=== PATIENT | male | born 1940 | race Caucasian/White ===

== ENCOUNTER → 2016-02-28 | Outpatient (CLI) | payer MEDICARE, BC | LOC: SP 07:36 | PROVIDERS: ATTEND Internal Medicine | DX: R09.89 Other specified symptoms and signs involving the circulatory and respiratory systems (principal) | CPT/HCPCS: 93880 ==

== ENCOUNTER 2016-10-04 11:17 | Emergency (ER) | payer MEDICARE, BC ==
[2016-10-04] MEDS ORDERED: DIAZEPAM INJ 10 MG/2 ML DISP.SYRIN IM ONE (11:35)
[2016-10-04] MEDS ORDERED: KETOROLAC TROMETHAMINE 60 MG/2 ML SDV IM ONE (11:35)
--- NOTE | 2016-10-04 11:42 | ER Document Report ---
ED General - General Chief Complaint: Headache Stated Complaint: NECK PAIN,HEADACHE Time Seen by Provider: 10/04/16 11:33 Mode of Arrival: Ambulatory Information source: Patient Notes: 76-year-old male presents with complaints of 4 day duration of neck tightness inability to move his neck. Patient notes that is causing him pain. denies any fevers or chills, denies any nausea or vomiting. Pt dneies any meningeal signs TRAVEL OUTSIDE OF THE [place] IN LAST 30 DAYS: No - HPI Onset: Last week Onset/Duration: Persistent Quality of pain: Achy Severity: Mild Pain Level: 1 Associated symptoms: None Exacerbated by: Movement Relieved by: Denies Similar symptoms previously: No Recently seen / treated by doctor: No Past Medical History - Social History Smoking Status: Former Smoker Cigarette use (# per day): No Chew tobacco use (# tins/day): No Smoking Education Provided: No Frequency of alcohol use: Occasional Drug Abuse: None Family History: Reviewed & Not Pertinent Patient has suicidal ideation: No Patient has homicidal ideation: No - Past Medical History Cardiac Medical History: Reports: Hx Hypertension Endocrine Medical History: Reports: Hx Diabetes Mellitus Type 2 Renal/ Medical History: Denies: Hx Peritoneal Dialysis Past Surgical History: Reports: Hx Orthopedic Surgery - Right eye, finger re- attachment - Immunizations Hx Diphtheria, Pertussis, Tetanus Vaccination: Yes Review of Systems - Review of Systems Notes: REVIEW OF SYSTEMS: CONSTITUTIONAL : Denies fever, chills, or sweats. Denies recent illness. EENT: Admits neck stiffness CARDIOVASCULAR: Denies chest pain. Denies palpitations or racing or irregular heart beat. Denies ankle edema. RESPIRATORY: Denies cough, cold, or chest congestion. Denies shortness of breath, difficulty breathing, or wheezing. GASTROINTESTINAL: Denies abdominal pain or distention. Denies nausea, vomiting , or diarrhea. Denies blood in vomitus, stools, or per rectum. Denies black, tarry stools. Denies constipation. GENITOURINARY: Denies difficulty urinating, painful urination, burning, frequency, blood in urine, or discharge. MUSCULOSKELETAL: Denies back or neck pain or stiffness. Denies joint pain or swelling. SKIN: Denies rash, lesions or sores. HEMATOLOGIC : Denies easy bruising or bleeding. LYMPHATIC: Denies swollen, enlarged glands. NEUROLOGICAL: Denies confusion or altered mental status. Denies passing out or loss of consciousness. Denies dizziness or lightheadedness. Denies headache. Denies weakness or paralysis or loss of use of either side. Denies problems with gait or speech. Denies sensory loss, numbness, or tingling. Denies seizures. PSYCHIATRIC: Denies anxiety or stress. Denies depression, suicidal ideation, or homicidal ideation. ALL OTHER SYSTEMS REVIEWED AND NEGATIVE. Dictation was performed using [employer] voice recognition software PHYSICAL EXAMINATION: GENERAL: Well-appearing, well-nourished and in no acute distress. HEAD: Atraumatic, normocephalic. EYES: Pupils equal round and reactive to light, extraocular movements intact, sclera anicteric, conjunctiva are normal. ENT: Limited range of motion of the neck no tenderness on palpation NECK: Normal range of motion, supple without lymphadenopathy LUNGS: Breath sounds clear to auscultation bilaterally and equal. No wheezes rales or rhonchi. HEART: Regular rate and rhythm without murmurs ABDOMEN: Soft, nontender, nondistended abdomen. No guarding, no rebound. No masses appreciated. Musculoskeletal: Normal range of motion, no pitting or edema. No cyanosis. NEUROLOGICAL: Cranial nerves grossly intact. Normal speech, normal gait. Normal sensory, motor exams PSYCH: Normal mood, normal affect. SKIN: Warm, Dry, normal turgor, no rashes or lesions noted. Physical Exam - Vital signs Vitals: Temp Pulse Resp BP Pulse Ox 97.6 F 70 18 156/75 H 98 10/04/16 11:20 10/04/16 11:20 10/04/16 11:20 10/04/16 11:20 10/04/16 11:20 Course - Re-evaluation Re-evalutation: 10/04/16 11:42 Patient's presentation is consistent with torticollis, he has no meningeal signs , he has no life-threatening issues noted. Initial concern was for subarachnoid or other intracranial abnormality however the patient's headache is completely related to muscle spasm 10/04/16 12:21 Patient notes mild improvement of the muscle spasm and headache 10/04/16 12:33 Patient otherwise looks well and will be discharged home at this time After performing a Medical Screening Examination, I estimate there is LOW risk for CENTRAL CORD SYNDROME, EPIDURAL MASS LESION, SEVERE SPINAL STENOSIS, ARTERIAL DISSECTION, MENINGITIS, or ACUTE CORONARY SYNDROME, thus I consider the discharge disposition reasonable. I have reevaluated this patient multiple times and no significant life threatening changes are noted. The patient and I have discussed the diagnosis and risks, and we agree with discharging home to follow-up on an outpatient basis with the understanding that symptoms and presentations can change. We also discussed returning to the Emergency Department immediately if new or worsening symptoms occur. We have discussed the symptoms which are most concerning (e.g., saddle anesthesia, urinary or bowel incontinence or retention, changing or worsening pain) that necessitate immediate return. - Vital Signs Vital signs: Temp Pulse Resp BP Pulse Ox 97.6 F 70 18 156/75 H 98 10/04/16 11:20 10/04/16 11:20 10/04/16 11:20 10/04/16 11:20 10/04/16 11:20 Discharge - Discharge Clinical Impression: Torticollis Headache Qualifiers: Headache type: unspecified Headache chronicity pattern: acute headache Intractability: not intractable Qualified Code(s): R51 - Headache Condition: Stable Disposition: HOME, SELF-CARE Instructions: Torticollis ([facility]) Additional Instructions: Follow up with your physician tomorrow for further care or return to the ED IMMEDIATELY if symptoms worsen or new concerns occur. If you cannot afford to follow up with your primary care physician a list of low cost clinics have been provided at the end of your discharge papers as well. Prescriptions: Diazepam [Valium 5 mg Tablet] 5 mg PO QIDP PRN #20 tablet PRN Reason: Ibuprofen 800 mg PO Q8 #30 tablet
[2016-10-04 13:03] VITALS: BP 148/76
== END 2016-10-04 13:02 | disposition home or self-care (01) ==
LOC: ER 11:17
DX: M43.6 Torticollis (principal); R51 Headache; M54.2 Cervicalgia; Z87.891 Personal history of nicotine dependence
CPT/HCPCS: 99283; 96372; J3360; J1885

== ENCOUNTER 2017-09-06 13:03 | Emergency (ER) | payer MEDICARE, BC ==
[2017-09-06 13:10] VITALS: BP 134/64
[2017-09-06] MEDS ORDERED: BUPIVACAINE HCL 0.75% INJ/PF (7.5 MG/1 ML) 10 ML SDV INJ ONE (13:47)
[2017-09-06] MEDS ORDERED: METHYLPREDNISOLONE ACETATE INJ 80 MG/1 ML VIAL INJ ONE (13:47)
--- NOTE | 2017-09-06 13:57 | ER Document Report ---
ED Extremity Problem, Lower - General Chief Complaint: Knee Pain Stated Complaint: KNEE PAIN Time Seen by Provider: 09/06/17 13:47 Information source: Patient Notes: Chief complaint: Right knee pain History of complain:( obtained from----patient) 77 years old male with a history of remote right knee injury, subsequent arthritis, presents today with nearly 5 day history of gradual swelling to the point that he could not walk this morning. No recent injuries. Denies any fever chills or other constitutional symptoms. Denies any history of gout. Onset: As above Duration: Last 5 days Severity: Moderate to severe Quality: Sharp Context: Swelling of the knee Exacerbating factor and relieving factors: Flexion extension increases the pain resting relieved REVIEW OF SYSTEMS: CONSTITUTIONAL : Denies fever, chills, or sweats. Denies recent illness. EENT: Denies eye, ear, throat, or mouth pain or symptoms. Denies nasal or sinus congestion or discharge. Denies throat, tongue, or mouth swelling or difficulty swallowing. CARDIOVASCULAR: Denies chest pain. Denies palpitations or racing or irregular heart beat. Denies ankle edema. RESPIRATORY: Denies cough, cold, or chest congestion. Denies shortness of breath, difficulty breathing, or wheezing. GASTROINTESTINAL: Denies distention. Denies nausea, vomiting, or diarrhea. Denies blood in vomitus, stools, or per rectum. Denies black, tarry stools. Denies constipation. GENITOURINARY: Denies difficulty urinating, painful urination, burning, frequency, blood in urine, or discharge. FEMALE GENITOURINARY: Denies vaginal bleeding, heavy or abnormal periods, irregular periods. Denies vaginal discharge or odor. MUSCULOSKELETAL: SKIN: Denies rash, lesions or sores. HEMATOLOGIC : Denies easy bruising or bleeding. LYMPHATIC: Denies swollen, enlarged glands. NEUROLOGICAL: Denies confusion or altered mental status. Denies passing out or loss of consciousness. Denies dizziness or lightheadedness. Denies headache. Denies weakness or paralysis or loss of use of either side. Denies problems with gait or speech. Denies sensory loss, numbness, or tingling. Denies seizures. PSYCHIATRIC: Denies anxiety or stress. Denies depression, suicidal ideation, or homicidal ideation. ALL OTHER SYSTEMS REVIEWED AND NEGATIVE. PHYSICAL EXAMINATION: GENERAL: Well-appearing, well-nourished and in mild acute distress. HEAD: Atraumatic, normocephalic. EYES: Pupils equal round and reactive to light, extraocular movements intact, conjunctiva are normal. ENT: Nares patent, oropharynx clear without exudates. Moist mucous membranes. NECK: Normal range of motion, supple without lymphadenopathy LUNGS: Breath sounds clear to auscultation bilaterally and equal. No wheezes rales or rhonchi. HEART: Regular rate and rhythm without murmurs Musculoskeletal: Right knee-shows diffuse swelling, fluctuant fluid over the knee joint, it is not erythematous is not warm or tender to touch. More fluid along the suprapatellar bursa. SKIN: Warm, Dry, normal turgor, no rashes or lesions noted. Dictation was performed using [employer] voice recognition software TRAVEL OUTSIDE OF THE [place] IN LAST 30 DAYS: No - HPI Notes: Dictated - Related Data Allergies/Adverse Reactions: No Known Allergies Allergy (Verified 09/06/17 13:40) Past Medical History - Social History Smoking Status: Never Smoker Cigarette use (# per day): No Chew tobacco use (# tins/day): No Smoking Education Provided: No Frequency of alcohol use: Rare Drug Abuse: None Lives with: Family Family History: Reviewed & Not Pertinent - Past Medical History Cardiac Medical History: Reports: Hx Hypertension Endocrine Medical History: Reports: Hx Diabetes Mellitus Type 2 Renal/ Medical History: Denies: Hx Peritoneal Dialysis Past Surgical History: Reports: Hx Orthopedic Surgery - Right eye, finger re- attachment - Immunizations Hx Diphtheria, Pertussis, Tetanus Vaccination: Yes Review of Systems - Review of Systems Notes: Dictated Physical Exam - Vital signs Vitals: Temp Pulse Resp BP Pulse Ox 97.9 F 67 18 134/64 H 99 09/06/17 13:09 09/06/17 13:09 09/06/17 13:09 09/06/17 13:09 09/06/17 13:09 - Notes Notes: Dictated Course - Vital Signs Vital signs: Temp Pulse Resp BP Pulse Ox 97.9 F 67 18 134/64 H 99 09/06/17 13:09 09/06/17 13:09 09/06/17 13:09 09/06/17 13:09 09/06/17 13:09 Procedures - Joint Aspiration Right Knee Time completed: 14:20 Consent obtained: Yes Joint aspiration pre-procedure: Sterile PPE donned, Sterile drapes applied Anesthetic type: Other - Depo-Medrol 80 mg mL's of anesthetic: 10 Needle size: 18 Amount/type of drainage: 40ml Number of attempts: 1 Complications: No Discharge - Discharge Clinical Impression: Knee effusion, right Condition: Fair Disposition: HOME, SELF-CARE Instructions: Sprained Knee ([facility]), Knee Effusion ([facility]), Osteoarthritis ([facility]) Prescriptions: Baclofen [Baclofen 10 mg Tablet] 10 mg PO TID #30 tab Hydrocodone/Acetaminophen [Hydrocodon-Acetaminophen 5-325] 1 each PO TID PRN # 20 tablet PRN Reason: Referrals: DIAN SWARTZ MD [Primary Care Provider] - Follow up as needed
== END 2017-09-06 14:36 | disposition home or self-care (01) ==
LOC: ER 13:03
DX: M25.461 Effusion, right knee (principal); M17.11 Unilateral primary osteoarthritis, right knee; M25.561 Pain in right knee; I10 Essential (primary) hypertension; E11.9 Type 2 diabetes mellitus without complications
CPT/HCPCS: 99283

== ENCOUNTER → 2017-12-11 | Outpatient (CLI) | payer MEDICARE, BC ==
--- NOTE | 2017-12-11 12:41 | RADIOLOGY REPORT (SQ) ---
EXAM DESCRIPTION: VENOUS UNILATERAL LOWER COMPLETED DATE/TIME: 12/11/2017 12:28 pm REASON FOR STUDY: EDEMA RT LEG R60.1 GENERALIZED EDEMA M79.671 PAIN IN RIGHT FOOT COMPARISON: None. TECHNIQUE: Dynamic and static walker scale and color images acquired of the right leg venous system. S elected spectral images acquired with additional compression and augmentation maneuvers. The contrala teral common femoral vein and saphenofemoral junction were also imaged. Images stored on PACS. LIMITATIONS: None. FINDINGS: COMMON FEMORAL: Normal phasicity, compression and augmentation. No visualized echogenic ma terial on walker scale. No defects on color images. FEMORAL: Normal compression and augmentation. No visualized echogenic material on walker scale. No defe cts on color images. POPLITEAL: Normal compression, augmentation. No visualized echogenic material on walker scale. No defec ts on color images. CALF VESSELS: Normal compression, augmentation. No visualized echogenic material on walker scale. No de fects on color images. GSV and SSV: Normal compression, augmentation. No visualized echogenic material on walker scale. No def ects on color images. ANY DEEP VENOUS INSUFFICIENCY: No. ANY EVIDENCE OF POPLITEAL CYST: No. OTHER: No other significant finding. CONTRALATERAL COMMON FEMORAL VEIN AND SAPHENOFEMORAL JUNCTION: Normal phasicity, compression and augmentation. No visualized echogenic material on walekr scale. No de fects on color images. IMPRESSION: NO EVIDENCE DVT OR SVT IN THE RIGHT LEG. TECHNICAL DOCUMENTATION: JOB ID: [id number] [employer]- All Rights Reserved Reading location - IP/workstation name: [email or web address]
== END ==
LOC: SP 11:29
PROVIDERS: ATTEND Podiatrist
DX: M79.671 Pain in right foot (principal); R60.1 Generalized edema
CPT/HCPCS: 93971

== ENCOUNTER 2018-07-30 09:57 | Emergency (ER) | payer MEDICARE, BC ==
[2018-07-30] MEDS ORDERED: OXYCODONE-ACETAMINOPHEN 5-325 MG TABLET PO ONE (10:36)
--- NOTE | 2018-07-30 10:37 | ER Document Report ---
ED Medical Screen (RME) - General Chief Complaint: Knee Pain Stated Complaint: RIGHT KNEE PAIN Time Seen by Provider: 07/30/18 10:32 Primary Care Provider: PREETI PARRY MD [Primary Care Provider] - Follow up as needed Mode of Arrival: Wheelchair Information source: Patient Notes: Patient is a 78-year-old male presented to the emergency department with long-standing history of joint effusions to his right knee. Patient reports he has had this drained in the emergency department as well as at the orthopedic providers office. He states the last time he had a drain was 3 weeks ago. Patient reports increased pain and states today he was unable to walk on this. He states he does need a knee replacement however due to his diabetes he is not a candidate for that at this time. Exam: Limited range of motion to left knee due to pain. Obvious joint effusion noted. I have greeted and performed a rapid initial assessment of this patient. A comprehensive ED assessment and evaluation of the patient, analysis of test results and completion of the medical decision making process will be conducted by additional ED providers. Dictation of this chart was performed using voice recognition software; therefore, there may be some unintended grammatical errors. TRAVEL OUTSIDE OF THE [place] IN LAST 30 DAYS: No - Related Data Allergies/Adverse Reactions: No Known Allergies Allergy (Verified 07/30/18 09:59) Past Medical History - Past Medical History Cardiac Medical History: Reports: Hx Hypertension Endocrine Medical History: Reports: Hx Diabetes Mellitus Type 2 Renal/ Medical History: Denies: Hx Peritoneal Dialysis Past Surgical History: Reports: Hx Orthopedic Surgery - Right eye, finger re- attachment - Immunizations Hx Diphtheria, Pertussis, Tetanus Vaccination: Yes Physical Exam - Vital signs Vitals: Temp Pulse Resp BP Pulse Ox 97.4 F 75 18 132/58 H 99 07/30/18 10:01 07/30/18 10:01 07/30/18 10:01 07/30/18 10:01 07/30/18 10:01 Course - Vital Signs Vital signs: Temp Pulse Resp BP Pulse Ox 97.4 F 75 18 132/58 H 99 07/30/18 10:01 07/30/18 10:01 07/30/18 10:01 07/30/18 10:01 07/30/18 10:01 Doctor's Discharge - Discharge Referrals: PREETI PARRY MD [Primary Care Provider] - Follow up as needed
--- NOTE | 2018-07-30 11:28 | RADIOLOGY REPORT (SQ) ---
EXAM DESCRIPTION: KNEE RIGHT 4 VIEWS COMPLETED DATE/TIME: 07/30/2018 11:09 am REASON FOR STUDY: eval for joint effusion COMPARISON: None. NUMBER OF VIEWS: Four views. TECHNIQUE: AP, lateral, and both oblique radiographic images acquired of the right knee. LIMITATIONS: None. FINDINGS: MINERALIZATION: Normal. BONES: No acute fracture or dislocation. No worrisome bone lesions. Joint space narrowing and osteoph yte formation patellofemoral and medial compartments. Bone on bone contact medial compartment. JOINT: Joint effusion. Loose bodies. OTHER: No other significant finding. IMPRESSION: Advanced osteoarthritis. Joint effusion. TECHNICAL DOCUMENTATION: JOB ID: [id number] [employer]- All Rights Reserved Reading location - IP/workstation name: [email or web address]
[2018-07-30] MEDS ORDERED: HYDROMORPHONE HCL INJ/PF 2 MG/ML AMPULE SUBCUT ONE (14:32)
[2018-07-30] MEDS ORDERED: ONDANSETRON 4 MG TAB.RAPDIS PO ONE (14:33)
--- NOTE | 2018-07-30 14:39 | ER Document Report ---
ED General - General Chief Complaint: Knee Pain Stated Complaint: RIGHT KNEE PAIN Time Seen by Provider: 07/30/18 10:32 Primary Care Provider: PREETI PARRY MD [ASSOCIATE] - Follow up as needed Mode of Arrival: Wheelchair Information source: Patient TRAVEL OUTSIDE OF THE [place] IN LAST 30 DAYS: No - HPI Patient complains to provider of: Right knee effusion Onset: Other - Chronic/recurrent Onset/Duration: Worse Quality of pain: Sharp, Stabbing Severity: Severe Pain Level: 5 Associated symptoms: None Exacerbated by: Movement, Walking, Other - Weightbearing Relieved by: Denies Similar symptoms previously: No Recently seen / treated by doctor: No Notes: Patient is a 78-year-old male coming in today for a right knee effusion. Apparently he has been having knee effusions in this knee for quite some time. He has seen the ER and Dr. Hurd's office to have it tapped in the past. Apparently he has a bad arthritis in that knee and does need a knee replacement at some point in time but is been told that because of his poorly controlled diabetes and nobody is willing to do the knee replacement at this time. He is here today specifically requesting a joint tap to relieve the pressure. - Related Data Allergies/Adverse Reactions: No Known Allergies Allergy (Verified 07/30/18 09:59) Past Medical History - General Information source: Patient - Social History Smoking Status: Never Smoker Frequency of alcohol use: Occasional Drug Abuse: None Family History: Reviewed & Not Pertinent Patient has suicidal ideation: No Patient has homicidal ideation: No - Past Medical History Cardiac Medical History: Reports: Hx Heart Attack, Hx Hypertension Endocrine Medical History: Reports: Hx Diabetes Mellitus Type 2 Renal/ Medical History: Denies: Hx Peritoneal Dialysis Past Surgical History: Reports: Hx Cardiac Surgery - bypass X 2, Hx Orthopedic Surgery - Right eye, finger re-attachment - Immunizations Hx Diphtheria, Pertussis, Tetanus Vaccination: Yes Review of Systems - Review of Systems Notes: Constitutional: No fevers. No chills. EENT: No eye redness. No eye pain. No ear pain. No sore throat. Cardiovascular: No chest pain. No palpitations. Respiratory: No cough. No shortness of breath. No respiratory distress. Gastrointestinal: No abdominal pain. No nausea, vomiting, or diarrhea. Genitourinary: Atraumatic. No lesions. No pain. No discharge. Musculoskeletal: Positive joint effusion right knee. Skin: No rash or lesions. Lymphatic: No swollen lymph nodes. Neurologic: No headache. No syncope. Psychiatric: No suicidal or homicidal ideation. Physical Exam - Vital signs Vitals: Temp Pulse Resp BP Pulse Ox 97.4 F 75 18 132/58 H 99 07/30/18 10:01 07/30/18 10:01 07/30/18 10:01 07/30/18 10:01 07/30/18 10:01 - Notes Notes: General: Well-developed, well-nourished. In no acute distress. Non-toxic appearing. Cardiac: Well-perfused. Regular rate and rhythm. No murmurs, rubs, or gallops. Pulmonary: No respiratory distress. No cyanosis. Bilateral lung fiels are clear to auscultation. Abdominal: Non-distended. Non-rigid. Bowels sounds are present in all four quadrants. No guarding or rebound. HEENT: Head is atraumatic. Conjunctivae not reddened. No tearing. PERRL. EOMI. Orbits atraumatic. No periorbital swelling or erythema. Oropharynx is without erythema, swelling, or exudates. Neck: Supple. No adenopathy. No meningismus. Dermatologic: Warm with good turgor. No rash. Atraumatic. Chest: Atraumatic. No chest wall tenderness to palpation. Musculoskeletal: Right lower extremity is examined. Obvious large right knee effusion. Good range of motion. No ligamentous laxity. No deformity. Distal neurovascular exam is intact Genitourinary: Examination deferred Neurologic: No gross neurologic deficits. Psychiatric: Normal mood. Course - Re-evaluation Re-evalutation: 07/30/18 14:36 I asked when the patient has follow-up with orthopedics. His indicates that tomorrow morning he has an appointment with Dr. davis. I indicate that I do not feel comfortable doing a joint tap in the emergency department especially on a patient with diabetes at risk for increased infection. He indicated that he would be happy if we could just help get his pain under control here with what of her medication necessary and send him home with something to keep him comfortable enough until he sees the orthopedic doctor tomorrow. - Vital Signs Vital signs: Temp Pulse Resp BP Pulse Ox 97.4 F 75 18 132/58 H 99 06/19/19 10:01 07/30/18 10:01 07/30/18 10:01 07/30/18 10:01 07/30/18 10:01 Discharge - Discharge Clinical Impression: Knee effusion, right, Elevated blood pressure reading Condition: Good Disposition: HOME, SELF-CARE Instructions: Knee Effusion ([facility]) Additional Instructions: You will be prescribed pain medication and also nausea medication. Sometimes the pain medication will make you nauseous. So if you are taking the pain medication and you start to feel any nausea take medication as soon as possible so that it does not get any worse. This is a common side effect of narcotic pain medication and should not be considered an allergic reaction. Prescriptions: Hydromorphone HCl [Dilaudid 2 mg Tablet] 1 - 2 tab PO Q6HP PRN #12 tablet PRN Reason: Forms: Elevated Blood Pressure Referrals: PREETI PARRY MD [ASSOCIATE] - Follow up tomorrow
[2018-07-30] MEDS ORDERED: ONDANSETRON ODT 4 MG TAB (6 TAB/ER DISP) PO PRN (14:46)
[2018-07-30 15:05] VITALS: BP 137/64
== END 2018-07-30 15:10 | disposition home or self-care (01) ==
LOC: ER 09:57
DX: M25.461 Effusion, right knee (principal); I10 Essential (primary) hypertension; M25.561 Pain in right knee; E11.9 Type 2 diabetes mellitus without complications
CPT/HCPCS: 99283; 96372; 73564; A9270 ×3; J1170; S0119

== ENCOUNTER → 2018-12-08 | Outpatient (CLI) | payer MEDICARE, BC | LOC: SP 10:39 | PROVIDERS: ATTEND Internal Medicine | DX: I82.401 Acute embolism and thrombosis of unspecified deep veins of right lower extremity (principal); M79.89 Other specified soft tissue disorders | CPT/HCPCS: 93971 ==

== ENCOUNTER → 2019-11-25 | Outpatient (CLI) | payer MEDICARE, BC ==
[2019-11-25 09:49] LABS: ABSOLUTE BASOPHILS # (AUTO) 0.1 10^3/uL (0.0-0.2); ABSOLUTE EOSINOPHILS # (AUTO) 0.2 10^3/uL (0.0-0.6); ABSOLUTE LYMPHOCYTES (AUTO) 1.3 10^3/uL (0.5-4.7); ABSOLUTE MONOCYTES (AUTO) 0.7 10^3/uL (0.1-1.4); ABSOLUTE NEUT (AUTO) 4.2 10^3/uL (1.7-8.2); BASOPHILS % (AUTO) 1.1 % (0-2); EOSINOPHILS % (AUTO) 2.7 % (0-6); HEMATOCRIT 41.9 % (37.9-51.0); HEMOGLOBIN 14.6 g/dL (13.5-17.0); LYMPHOCYTES % (AUTO) 19.4 % (13-45); MEAN CORPUSCULAR HEMOGLOBIN 31.7 pg (27.0-33.4); MEAN CORPUSCULAR HGB CONC 34.9 g/dL (32.0-36.0); MEAN CORPUSCULAR VOLUME 91 fl (80-97); MONOCYTES % (AUTO) 11.2 % (3-13); PLATELET COUNT 220 10^3/uL (150-450); RED BLOOD COUNT 4.61 10^6/uL (4.35-5.55); RED CELL DISTRIBUTION WIDTH 14.2 % (11.5-14.0); SEGMENTED NEUTROPHILS % (AUTO) 65.6 % (42-78); TOTAL CELLS COUNTED % (AUTO) 100 %; WHITE BLOOD COUNT 6.5 10^3/uL (4.0-10.5)
[2019-11-25 10:11] LABS: ALBUMIN 3.6 g/dL (3.5-5.0); ALKALINE PHOSPHATASE 93 U/L (38-126); BILIRUBIN,DIRECT 0.3 mg/dL (0.0-0.4); BILIRUBIN,TOTAL 0.9 mg/dL (0.2-1.3); BLOOD UREA NITROGEN 14 mg/dL (7-20); CARBON DIOXIDE 28 mmol/L (22-30); CHLORIDE 103 mmol/L (98-107); CHOLESTEROL 85.55 mg/dL (0-200); GLUCOSE 105 mg/dL (75-110); TOTAL PROTEIN 6.7 g/dL (6.3-8.2); TRIGLYCERIDES 48 mg/dL (<150)
[2019-11-25 10:59] LABS: ANION GAP 8 (5-19); ASPARTATE AMINO TRANSFERASE 35 U/L (17-59); CALCIUM 8.8 mg/dL (8.4-10.2)
[2019-11-25 11:03] LABS: DIRECT LDL < 30 mg/dL (<100)
[2019-11-26 10:37] LABS: CREATININE URINE 60.4 mg/dL (Not Estab.); MICROALBUMIN URINE <3.0 ug/mL (Not Estab.)
== END ==
LOC: OD 08:26
PROVIDERS: ATTEND Internal Medicine
DX: I25.10 Atherosclerotic heart disease of native coronary artery without angina pectoris (principal); E11.22 Type 2 diabetes mellitus with diabetic chronic kidney disease; N18.9 Chronic kidney disease, unspecified; R53.83 Other fatigue; Z79.899 Other long term (current) drug therapy
CPT/HCPCS: 36415; 80053; 80061; 82043; 82570; 83036; 84443; 85025